=== PATIENT | male | born 1955 | race Caucasian/White ===

== ENCOUNTER 2020-08-08 09:23 | Emergency (ER) | payer MEDICAID ==
[~2020-08-08] VITALS: Ht 172.7 cm; Wt 72.6 kg
[2020-08-08 09:29] VITALS: BP 121/85
== END 2020-08-08 10:52 | disposition home or self-care (01) ==
LOC: ER 09:23
DX: R21 Rash and other nonspecific skin eruption (principal); Z53.29 Procedure and treatment not carried out because of patient's decision for other reasons

== ENCOUNTER 2020-10-31 13:21 | Emergency (ER) | payer MEDICAID ==
[~2020-10-31] VITALS: Ht 170.2 cm; Wt 74.8 kg
[2020-10-31 13:21] VITALS: BP 121/74
[2020-10-31] MEDS ORDERED: methylPREDNISolone SOD SUCC 125 MG/2 ML VL IV ONE (13:45)
[2020-10-31 16:51] LABS: Basophils # (auto) 0.1 10 ^3/uL (0-0.2); Basophils % (auto) 0.8 % (0.0-2.0); Eosinophils # (auto) 0.5 10 ^3/uL (0-0.8); Eosinophils % (auto) 5.2 % (0.0-7.0); Hematocrit 39.8 % (41.0-53.0); Hemoglobin 13.4 g/dL (13.5-17.5); Lymphocytes # (auto) 1.3 10 ^3/uL (0.4-5.4); Lymphocytes % (auto) 12.8 % (10.0-50.0); Mean Corpuscular Hemoglobin 30.6 pg (28.0-32.0); Mean Corpuscular Hgb Conc. 33.7 g/dL (32.0-36.0); Mean Corpuscular Volume 90.8 fL (80.0-100.0); Monocytes # (auto) 0.9 10 ^3/uL (0-1.3); Monocytes % (auto) 9.7 % (0.0-12.0); Neutrophils % (auto) 71.5 % (37.0-80.0); Red Blood Cells 4.38 10^6/uL (4.5-5.90); Red Cell Distribution Width 14.7 % (11.8-14.3); White Blood Cell 9.8 10^3/uL (4.4-10.8)
[2020-10-31 17:01] LABS: Alanine Aminotransferase 36 U/L (16-61); Albumin 2.9 g/dL (3.4-5.0); Anion Gap 3 (5-15); Blood Urea Nitrogen 16 mg/dL (7-18); Calcium 8.3 mg/dL (8.5-10.1); Carbon Dioxide 30 mmol/L (21-32); Chloride 108 mmol/L (98-107); Glucose 82 mg/dL (74-106); Potassium 4.9 mmol/L (3.5-5.1); Sodium 141 mmol/L (136-145)
[2020-10-31 17:09] LABS: Alkaline Phosphatase 107 U/L (45-117); Aspartate Aminotransferase 29 U/L (15-37); BUN/Creatinine Ratio 22.9; Bilirubin, Total 0.2 mg/dL (0.2-1.0); CRP High Sensitivity 2.63 mg/dL (< 0.3); GFR African American 146 mL/min; GFR Non-African American 121 mL/min; Total Protein 6.6 g/dL (6.4-8.2)
[2020-10-31] MEDS ORDERED: HYDROcodone-ACET 10/325MG TAB PO ONE (18:30)
== END 2020-10-31 18:52 | disposition home or self-care (01) ==
LOC: EDUNIT# 13:21 → EDBD 13:21 → ER 13:25
DX: R21 Rash and other nonspecific skin eruption (principal)
CPT/HCPCS: 36415; 71045; 80053; 82728; 84484; 85025; 86141

== ENCOUNTER 2021-09-29 08:52 | Emergency (ER) | payer MEDICAID ==
[~2021-09-29] VITALS: Ht 172.7 cm; Wt 45.0 kg
[2021-09-29] MEDS ORDERED: SODIUM CHLORIDE 0.9% 1,000 ML IV ONE ×2 (09:30)
[2021-09-29] MEDS ORDERED: CLIN300C8 PO (10:07)
[2021-09-29] MEDS ORDERED: CEPH-509 PO (10:07)
[2021-09-29 10:11] LABS: Basophils # (auto) 0 10 ^3/uL (0-0.2); Basophils % (auto) 0.2 % (0.0-2.0); Eosinophils # (auto) 0.7 10 ^3/uL (0-0.8); Hemoglobin 10.7 g/dL (13.5-17.5); Lymphocytes # (auto) 0.8 10 ^3/uL (0.4-5.4); Monocytes # (auto) 0.5 10 ^3/uL (0-1.3); Nucleated Red Blood Cells % 0.1 %
[2021-09-29] MEDS ORDERED: KETOROLAC TROMETH 30 MG/ML 1ML VIAL IV ONE (10:15)
[2021-09-29 10:20] LABS: Eosinophils % (auto) 8.9 % (0.0-7.0); Hematocrit 35.4 % (41.0-53.0); Mean Corpuscular Hemoglobin 23.2 pg (28.0-32.0); Mean Corpuscular Hgb Conc. 30.4 g/dL (32.0-36.0); Mean Corpuscular Volume 76.4 fL (80.0-100.0); Monocytes % (auto) 6.3 % (0.0-12.0); Neutrophils # (auto) 5.7 10 ^3/uL (1.6-8.6); Neutrophils % (auto) 74.6 % (37.0-80.0); Red Blood Cells 4.63 10^6/uL (4.5-5.90); Red Cell Distribution Width 17.9 % (11.8-14.3); White Blood Cell 7.7 10^3/uL (4.4-10.8)
[2021-09-29 10:27] LABS: Albumin 1.9 g/dL (3.4-5.0); Calcium 8.1 mg/dL (8.5-10.1); Potassium 3.7 mmol/L (3.5-5.1)
[2021-09-29] MEDS ORDERED: HYDROcodone-ACET 10/325MG TAB PO ONE ×2 (10:30→16:00)
[2021-09-29 10:31] LABS: BUN/Creatinine Ratio 23.3; Bilirubin, Total 0.2 mg/dL (0.2-1.0); Total Protein 6.3 g/dL (6.4-8.2)
[2021-09-29] MEDS: HYDROcodone-ACET 10/325MG TAB PO PRN (21:38)
[2021-09-29] MEDS ORDERED: LORazepam 0.5 MG TAB PO ONE (22:45)
[2021-09-29] MEDS ORDERED: diphenhdrAMINE HCL 25 MG CAP PO ONE (22:45)
[2021-09-30] MEDS: HYDROcodone-ACET 10/325MG TAB PO PRN (04:31)
[2021-09-30] MEDS ORDERED: SODIUM CHLORIDE 0.9% 1,000 ML IV ONE (07:45)
[2021-09-30] MEDS: MAGNESIUM SULFATE 1GM/100ML 100 ML IV SCH ×2 (11:44→14:46)
[2021-09-30] MEDS ORDERED: MORPHINE SULFATE INJ 2 MG/ml SYRG IV ONE (14:30)
[2021-09-30] MEDS ORDERED: carBAMazepine 200 MG TAB PO ONE (14:45)
[2021-09-30] MEDS ORDERED: hydrOXYzine 25 MG TAB or CAP PO ONE (14:45)
[2021-10-01] MEDS ORDERED: MORPHINE SULFATE 4 MG/ML SYR/VIAL IV ONE ×2 (00:30→21:00)
[2021-10-01] MEDS: HYDROcodone-ACET 10/325MG TAB PO PRN (04:57)
[2021-10-01] MEDS ORDERED: HYDROmorphone HCL 2 MG/ML VL/or syr IV ONE (14:00)
[2021-10-01] MEDS ORDERED: carBAMazepine 200 MG TAB PO ONE (21:00)
[2021-10-01] MEDS ORDERED: ONDANSETRON HCL 4 MG/2 ML VIAL IV ONE (21:00)
[2021-10-02] MEDS ORDERED: MORPHINE SULFATE 4 MG/ML SYR/VIAL IM ONE (07:15)
[2021-10-02] MEDS ORDERED: LORazepam 2MG/ML-1ML VIAL IV ONE (13:45)
[2021-10-02] MEDS ORDERED: diphenhdrAMINE HCL 25 MG CAP PO ONE (13:45)
[2021-10-02] MEDS ORDERED: LORazepam 2MG/ML-1ML VIAL IV PRN (14:00)
[2021-10-02] MEDS ORDERED: LORazepam 2MG/ML-1ML VIAL IM ONE (14:30)
[2021-10-02] MEDS ORDERED: MORPHINE SULFATE INJ 2 MG/ml SYRG IM ONE (15:00)
[2021-10-02 15:14] VITALS: BP 104/60
== END 2021-10-02 15:37 | disposition home or self-care (01) ==
LOC: ER 08:52 → EDBD 08:52 → ER 10-02 15:37
DX: L03.116 Cellulitis of left lower limb (principal); E43 Unspecified severe protein-calorie malnutrition; Z68.1 Body mass index [BMI] 19.9 or less, adult; Z20.822 Contact with and (suspected) exposure to COVID-19
CPT/HCPCS: 36415; 80053; 83735; 84443; 84484; 85025; 86703; 87426; 96361; 96365; 96366; 96375; 96376; 99285; J2270; J7030; J1885

== ENCOUNTER 2021-10-14 12:49 | Emergency (ER) | payer MEDICAID ==
[~2021-10-14] VITALS: Ht 172.7 cm; Wt 63.2 kg
[~2021-10-14 12:49] MED LIST: CEPH-509 PO; CLIN300C8 PO
[2021-10-14] MEDS ORDERED: LIDOCAINE 1%-Mpf/Epinephrine 1:200,000 SC ONE (14:30)
[2021-10-14] MEDS ORDERED: LIDOCAINE W/ EPINEPHRINE 1% 20ML VIAL SC ONE (14:30)
[2021-10-14 18:31] LABS: Hematocrit 32.4 % (41.0-53.0); Hemoglobin 9.8 g/dL (13.5-17.5)
[2021-10-14 18:36] LABS: Mean Corpuscular Hemoglobin 23.2 pg (28.0-32.0); Mean Corpuscular Hgb Conc. 30.1 g/dL (32.0-36.0); Mean Corpuscular Volume 77.1 fL (80.0-100.0); Red Cell Distribution Width 18.6 % (11.8-14.3); White Blood Cell 6.2 10^3/uL (4.4-10.8)
[2021-10-14 18:40] LABS: Basophils % (manual) 0 (0.0-2.0); Blast Cells 0; Metamyelocytes % 0; Myelocytes % 0; Promyelocytes % 0; Reactive Lymphocytes 0
[2021-10-14 18:47] LABS: INR 0.98 (0.9-1.15); Partial Thromboplastin Time 27.9 sec (24.6-33.4)
[2021-10-14 18:57] LABS: Band Neutrophils % (manual) 2; Eosinophils % (manual) 13 (0-7); Lymphocytes % (manual) 21 (10.0-50.0); Monocytes % (manual) 10 (0-12)
[2021-10-14] MEDS ORDERED: MORPHINE SULFATE 4 MG/ML SYR/VIAL IV PRN (19:21)
[2021-10-14] MEDS ORDERED: TETANUS-DIPTH-ACEL PERTUSSIS 0.5ML SYR Tdap IM ONE (19:30)
[2021-10-14 19:39] LABS: Albumin 2.1 g/dL (3.4-5.0); Calcium 8.7 mg/dL (8.5-10.1); Potassium 4.3 mmol/L (3.5-5.1)
[2021-10-14 19:42] LABS: BUN/Creatinine Ratio 21.9; Bilirubin, Total 0.1 mg/dL (0.2-1.0)
[2021-10-14 19:52] VITALS: BP 96/63
== END 2021-10-14 20:04 | disposition short-term general hospital (02) ==
LOC: ER 12:49 → EDBD 12:49 → ER 20:04
DX: S01.81XA Laceration without foreign body of other part of head, initial encounter (principal); G93.89 Other specified disorders of brain; I10 Essential (primary) hypertension; Z88.6 Allergy status to analgesic agent; W06.XXXA Fall from bed, initial encounter; Y93.89 Activity, other specified; Y92.89 Other specified places as the place of occurrence of the external cause; Y99.8 Other external cause status
CPT/HCPCS: 12016; 36415; 70450; 72125; 80053; 84484; 85007; 85027; 85610; 85730; 90471; 90715; 96372; 99291; J2001